=== PATIENT | female | born 1980 | race Caucasian/White ===

== ENCOUNTER → 2016-05-12 | Outpatient (CLI) | payer BC, OTHER ==
--- NOTE | 2016-05-12 15:13 | DI ---
US OB GTE 14 WEEKS,05/12/2016 9:51 AM: Clinical History: Anatomic survey Previous Exam: September 29, 2013 Findings: Multiple grayscale and color Doppler sonographic images are obtained through the pelvis demonstrating a normal cervix which is long and closed. There is a single live intrauterine gestation in breech pr esentation. Amniotic fluid level was subjectively normal. There is normal motion of the limbs and diaphragms. Detected Doppler heart tones measure 156 beats pe r minute. Placenta is posterior and grade 1 without defects. Estimated gestational age was determined by a composite of biparietal diameter, head circumference, a bdominal circumference and femur length yielding an estimated gestational age by ultrasound of 19 wee ks 6 days. Estimated weight was 320 g (40th percentile). Impression: Single live intrauterine gestation with size equal to dates. Normal anatomic survey.
== END ==
LOC: US 09:45
PROVIDERS: ATTEND Obstetrics & Gynecology
DX: Z36 Encounter for antenatal screening of mother (principal); Z3A.20 20 weeks gestation of pregnancy
CPT/HCPCS: 76805

== ENCOUNTER → 2016-07-08 | Outpatient (CLI) | payer BC, OTHER ==
[2016-07-08 10:31] LABS: HEMATOCRIT 38.2 % (37.0-47.0); HEMOGLOBIN 12.5 g/dL (12.0-16.0); MEAN CORPUSCULAR HEMOGLOBIN 29.1 PG (27-31); MEAN CORPUSCULAR HGB CONC 32.7 g/dL (33-37); MEAN PLATELET VOLUME 10.1 FL (7.4-12.2); RED BLOOD COUNT 4.29 10^6/uL (4.20-5.40)
== END ==
LOC: LAB 09:09
PROVIDERS: ATTEND Obstetrics & Gynecology
DX: Z36 Encounter for antenatal screening of mother (principal); Z3A.28 28 weeks gestation of pregnancy
CPT/HCPCS: 36415; 82950; 85027

== ENCOUNTER → 2016-09-01 | Outpatient (CLI) | payer BC, OTHER | LOC: MOB LAB 10:59 | PROVIDERS: ATTEND Obstetrics & Gynecology | DX: Z36 Encounter for antenatal screening of mother (principal); Z3A.36 36 weeks gestation of pregnancy | CPT/HCPCS: 87150 ==

== ENCOUNTER 2016-09-30 00:12 | Inpatient (IN) | payer BC, OTHER ==
[2016-09-30] MEDS ORDERED: CITRIC ACID/SODIUM CITRATE 30 ML CUP PO PRN (07:28)
[2016-09-30] MEDS ORDERED: ONDANSETRON 4 MG/2 ML VIAL IVP PRN ×2 (07:28→15:13)
[2016-09-30] MEDS ORDERED: CALCIUM CARBONATE 500 MG (TUMS) CHEWABLE TABLET PO PRN ×2 (07:28→15:13)
[2016-09-30] MEDS ORDERED: TERBUTALINE SULFATE 1 MG/1 ML SDV SUBCUT PRN (07:28)
[2016-09-30] MEDS ORDERED: Lidocaine 1% 10 MG/ML - 20 ML VIAL SUBCUT PRN (07:28)
[2016-09-30] MEDS ORDERED: fentaNYL Inj 100 MCG/2 ML VIAL IV PRN (07:28)
[2016-09-30] MEDS ORDERED: MISOPROSTOL 200 MCG TABLET RECTAL PRN (07:28)
[2016-09-30] MEDS ORDERED: Metoclopramide Inj 10 MG/2 ML VIAL IV PRN (07:28)
[2016-09-30] MEDS ORDERED: METHYLERGONOVINE MALEATE 0.2 MG/1 ML VIAL IM PRN ×2 (07:28→15:13)
[2016-09-30] MEDS ORDERED: LIDOCAINE W/ SODIUM BICARB 0.5 ML SYR SUBD PRN (07:28)
[2016-09-30] MEDS ORDERED: NORMAL SALINE 10 ML SYRINGE FLUSH IVP PRN ×2 (07:28→15:13)
[2016-09-30] MEDS ORDERED: CefOXitin Inj 2 GM in Sodium Chloride 0.9% 100 ML IV PRN (07:28)
[2016-09-30] MEDS ORDERED: Famotidine Inj 20 MG in Normal Saline Flush 10 ML IVP PRN ×4 (07:28)
[2016-09-30] MEDS ORDERED: OXYTOCIN 10 UNIT/1 ML IM PRN (07:28)
[2016-09-30] MEDS ORDERED: Carboprost Inj 250 MCG/ML AMP IM PRN ×2 (07:28→15:13)
[2016-09-30] MEDS ORDERED: Oxytocin 20 Units + LR 1,000 ML IV SCH ×3 (07:30→15:13)
[2016-09-30] MEDS ORDERED: Nalbuphine Inj 20 MG/ML Ampule IVP PRN ×3 (07:40→15:13)
[2016-09-30] MEDS ORDERED: Phenylephrine Inj 50 MCG in Normal Saline Flush 0.5 ML IVP PRN ×2 (07:40→11:47)
[2016-09-30] MEDS ORDERED: Naloxone Inj 0.01 MG in Normal Saline Flush 1 ML IVP PRN ×2 (07:40→11:47)
[2016-09-30] MEDS ORDERED: ePHEDrine Inj 5 MG in Normal Saline Flush 1 ML IVP PRN ×2 (07:40→11:47)
[2016-09-30] MEDS ORDERED: diphenhydrAMINE 50 MG/1 ML VIAL IVP PRN ×3 (07:40→15:13)
[2016-09-30] MEDS ORDERED: NALOXONE 0.4 MG/1 ML VIAL IVP PRN ×2 (07:40→11:47)
[2016-09-30] MEDS ORDERED: BUTORPHANOL TARTRATE 2 MG/1 ML VIAL IVP PRN ×2 (07:40→11:47)
[2016-09-30 08:45] LABS: HEMATOCRIT 38.9 % (37.0-47.0); HEMOGLOBIN 13.2 g/dL (12.0-16.0); MEAN CORPUSCULAR HEMOGLOBIN 29.8 PG (27-31); MEAN CORPUSCULAR HGB CONC 33.9 g/dL (33-37); MEAN CORPUSCULAR VOLUME 87.8 FL (81-99); MEAN PLATELET VOLUME 10.3 FL (7.4-12.2); RED BLOOD COUNT 4.43 10^6/uL (4.20-5.40)
[2016-09-30] MEDS: Lactated Ringers-OB Dept 1,000 ML PRIMARY IV SCH ×3 (08:57→14:38)
[2016-09-30] MEDS ORDERED: Fent/Bupiv 2mcg/0.0625% Epid 250 ML ONE (11:12)
[2016-09-30] MEDS ORDERED: fentaNYL 2 MCG/BUPIVACAINE 0.0625%/NS 0.9% 250 ML BAG EPIDURAL ONE (11:47)
--- NOTE | 2016-09-30 11:53 | CRNA.PROCE ---
Central Neuraxis Block Placemt - - Safety Measures: Site Verified - - Type of Block: Epidural (Epidural for labor.) Reason for Block: Analgesia Moniters Used During Block: SPO2, NIBP Skin Prep Used: Betadine (Times 3) Draped: Yes Skin Infiltration - Enter Amount Used in Comment Field: 1% Xylocaine (mL): Yes ( 1.5 ml) Spinal Needle Used: 18 Hustead 80 mm (CAMILLA with saline, epidural space times 1. Catheter threaded with ease.) Local Anesthetic - Enter Amount Used in Comment Field: 1.5 % Xylocaine with Epinephrine 1:200,000 (mL): Yes (4 ml) Number of Centimeters Catheter Threaded: 4 Bioclusive Dressing Applied: Yes (Skin prep under bioclusive dressing.) - - Additional Details: Baby number 5. E-Natals unremarkable Laboratory Results 09/30/16 Range/Units 08:30 WBC 9.06 (4.8-10.8) 10^3/uL RBC 4.43 (4.20-5.40) 10^6/uL Hgb 13.2 (12.0-16.0) g/dL Hct 38.9 (37.0-47.0) % MCV 87.8 (81-99) FL MCH 29.8 (27-31) PG MCHC 33.9 (33-37) g/dL RDW Std Deviation 46.8 (39-50) fL RDW Coeff of Radha 14.9 H (11.5-14.5) % Plt Count 234 (140-350) 10*3/uL MPV 10.3 (7.4-12.2) FL
--- NOTE | 2016-09-30 14:40 | OB.DEL.SUM ---
Delivery Note Delivery Summary: After amniotomy, which returned clear fluid, she progressed rapidly to complete dilation and pushed for a short time to of a viable female infant, Apgars 9 /10, over a small second degree vaginal/perineal laceration. The placenta delivered promptly, spontaneously, intact, with a 3 vessel cord. Repair was made with 3-0 Vicryl Rapide suture using the epidural for analgesia. There were no complications.
[2016-09-30] MEDS ORDERED: ACETAMINOPHEN 325 MG TABLET PO PRN (15:13)
[2016-09-30] MEDS ORDERED: BENZOCAINE/MENTHOL SPRAY 56 GM BOTTLE TOPICAL PRN (15:13)
[2016-09-30] MEDS ORDERED: diphenhydrAMINE 25 MG CAPSULE PO PRN (15:13)
[2016-09-30] MEDS ORDERED: MISOPROSTOL 200 MCG TABLET RECTAL ONE (15:13)
[2016-09-30] MEDS ORDERED: Ondansetron ODT Tab 4 MG TAB PO PRN (15:13)
[2016-09-30] MEDS ORDERED: GLYCERIN/WITCH HAZEL 1 BOX TOPICAL PRN (15:13)
[2016-09-30] MEDS ORDERED: HYDROcodone-APAP 5 MG -325 MG TABLET PO PRN (15:13)
[2016-09-30] MEDS ORDERED: Methylergonovine Tab 0.2 MG TAB PO PRN (15:13)
[2016-09-30] MEDS ORDERED: DIPH,PERTUSS,TET(ADACEL) VAC/PF 0.5 ML (Tdap) IM SCH (15:13)
[2016-09-30] MEDS ORDERED: LANOLIN HPA 40 GM TUBE TOPICAL PRN (15:13)
[2016-09-30] MEDS ORDERED: IBUPROFEN 800 MG TABLET PO PRN (15:13)
[2016-09-30] MEDS ORDERED: OXYTOCIN 10 UNIT/1 ML IM ONE (15:13)
[2016-09-30] MEDS ORDERED: KETOROLAC 30 MG/1 ML VIAL ONE (15:27)
[2016-09-30] MEDS ORDERED: ONDANSETRON 4 MG/2 ML VIAL ONE (15:29)
[2016-09-30] MEDS ORDERED: Prochlorperazine Edisylate Inj 10mg/2ml vial IVP ONE (15:30)
[2016-09-30] MEDS ORDERED: Prochlorperazine Edisylate Inj 5 MG in Sodium Chloride 0.9% 500 ML IV ONE (15:39)
--- NOTE | 2016-09-30 15:39 | OB.OP.NOTE ---
Operative Report Surgeon: Katrina Anesthesia Type: Regional Anesthesia Provider: Rosendo Bernabe CRNA Surgery Date: 09/30/16 Preoperative Diagnosis: Desires Sterilization Postoperative Diagnosis: Same Procedure: PPTL with Filshie Clips Estimated Blood Loss (mL): 5 Fluids: See anesthesia record Complications: None Findings at Surgery: Normal Fallopian tubes Indications for the Procedure: Now P5 s/p desires sterilization. Description of Procedure: The patient was taken to the OR where spinal anesthesia was administered. She was placed supine. She was prepped and draped in the normal sterile manner. Adequacy of spinal anesthesia was tested and found to be adequate. A transverse infra-umbilical incision was made, about 1.5 inches in length with a scalpel. The subcutaneous tissue was incised with bovie cautery and the peritoneal cavity was entered with cautery. A small Allexis retractor was placed. She was placed in [place] position. The right cornua was identified and the fallopian tube was grasped with a suleman clamp. The tube was followed to the fimbria and back. A single Filshie clip was placed on the mid-isthmic portion. The left tube was then identified and followed to the fimbria. A single Filshie clip was applied to the mid-isthmic portion of the tube. The izzy retractor was then removed and the fascia was closed with 0 vicryl suture. The subcutaneous space was closed with interrupted 3-0 vicryl sutures and the skin was closed with absorbable eliane. The wound was dressed appropriately. There were no complications. Plan: Routine care.
[2016-09-30] MEDS ORDERED: Prochlorperazine Edisylate Inj 10mg/2ml vial ONE (15:43)
--- NOTE | 2016-09-30 15:43 | CRNA.PROCE ---
Central Neuraxis Block Placemt - - Type of Block: Subarachnoid Reason for Block: Surgical Moniters Used During Block: EKG, SPO2, NIBP Skin Prep Used: ChloroPrep Draped: No Skin Infiltration - Enter Amount Used in Comment Field: 1% Xylocaine (mL): Yes ( skin wheal) Spinal Needle Used: 25 Lavinia 80 mm Local Anesthetic - Enter Amount Used in Comment Field: 0.75 % Bupivacaine with Dextrose (ml): Yes (7.5mg) Bioclusive Dressing Applied: No
[2016-09-30] MEDS ORDERED: NORMAL SALINE 100 ML IV ONE (16:46)
[2016-09-30] MEDS ORDERED: Sodium Chloride 0.9% 1,000 ML PRIMARY IV SCH (17:00)
[2016-09-30] MEDS: DOCUSATE 100 MG CAPSULE PO SCH (21:32)
[2016-09-30] MEDS: GUAIFENESIN/DM 5 ML UD CUP PO PRN (21:50)
[2016-09-30 23:55] VITALS: RESP 18
[2016-10-01] MEDS: GUAIFENESIN/DM 5 ML UD CUP PO PRN ×3 (03:15→12:31)
[2016-10-01 05:30] VITALS: TEMP 97.8
[2016-10-01 05:36] LABS: HEMATOCRIT 37.8 % (37.0-47.0); HEMOGLOBIN 12.4 g/dL (12.0-16.0); MEAN CORPUSCULAR HEMOGLOBIN 29.2 PG (27-31); MEAN CORPUSCULAR HGB CONC 32.8 g/dL (33-37); MEAN CORPUSCULAR VOLUME 89.2 FL (81-99); MEAN PLATELET VOLUME 10.5 FL (7.4-12.2); RED BLOOD COUNT 4.24 10^6/uL (4.20-5.40)
[2016-10-01] MEDS: DOCUSATE 100 MG CAPSULE PO SCH (08:10)
[2016-10-01] MEDS ORDERED: Prenatal Multivitamin Tab 1 TAB TAB PO SCH (09:00)
--- NOTE | 2016-10-01 10:28 | CRNA.PROGR ---
Anesthesia Note Anesthesia Progress Note: Post OP Anesthesia Note Pt is up and dressed, tending to new born. Nausea issues have resolved and she has tolerated a regular diet. She denies any residual problems with neither labor epidural or SAB from [facility]. Current VSS. Vital Signs (Last 8 hours) Temp Pulse Pulse Resp BP Pulse Ox 10/01/16 10:10 88 10/01/16 08:45 97.8 F 88 18 134/85 98 10/01/16 05:05 97.8 F 58 L 18 115/71 99
--- NOTE | 2016-10-01 10:48 | DCSUMMARY ---
Hospitalization Summary Admit Date: 09/30/16 Discharge Date: 10/01/16 Primary Diagnosis:: Term , Delivered Secondary Diagnosis:: Desires permanent sterilization. Other Surgery and Date: PPTL with Filshie Clips 09/30/16 Delivery Type: Vaginal Hospital Course: Normal uncomplicated labor, delivery, and /post operative course. / Postop Complications: None [place] Complications: None Exam - Vitals Vital Signs: Vital Signs Temperature 97.8 F Temperature Source Oral Pulse Rate [Pulse Oximeter] 88 Pulse Rate 88 Respiratory Rate [Left lower 18 abd "window"] Respiratory Rate [Contractions 18 ] Respiratory Rate 18 Blood Pressure [Right Arm] 134/85 Blood Pressure 115/69 Pulse Ox 98 Oxygen Flow Rate 1 Oxygen Delivery Method Room Air Height 5 ft 10 in Weight 215 lb
== END 2016-10-01 15:57 | disposition home or self-care (01) | DRG 767 ==
LOC: OBIP 07:28
PROVIDERS: ADMIT Obstetrics & Gynecology; ATTEND Obstetrics & Gynecology
PROC: 0UL70CZ Occlusion of Bilateral Fallopian Tubes with Extraluminal Device, Open Approach (ICD-10-PCS; 2016-09-30)
PROC: 0KQM0ZZ Repair Perineum Muscle, Open Approach (ICD-10-PCS; 2016-09-30)
PROC: 10E0XZZ Delivery of Products of Conception, External Approach (ICD-10-PCS; principal; 2016-09-30 15:00)
DX: O71.4 Obstetric high vaginal laceration alone (principal); Z37.0 Single live birth; Z3A.40 40 weeks gestation of pregnancy; Z30.2 Encounter for sterilization
CPT/HCPCS: 36415; 81003; 85027; J0780; J1885; J2405; J3490; J7030; J7120